=== PATIENT | female | born 1980 | race Two or more races ===

== ENCOUNTER 2017-12-09 12:25 | Emergency (ER) | payer OTHER ==
[2017-12-09 12:36] VITALS: BP 98/61; PULSE 61; TEMP 98; BMI 25.1
[2017-12-09] MEDS ORDERED: KETOROLAC TROMETHAMINE 60 MG/2 ML VIAL IM ONE (14:37)
[2017-12-09] MEDS ORDERED: KETOROLAC TROMETHAMINE 60 MG/2 ML VIAL ONE (14:40)
--- NOTE | 2017-12-09 14:49 | PDOC ---
History of Present Illness - General Chief Complaint: Back Pain Stated Complaint: FALL, PAIN IN LOWER BACK Time Seen by Provider: 12/09/17 12:59 - History of Present Illness Initial Comments: 37-year-old female with lower back pain after a slip on wet leaves this morning. She states she fell directly onto her buttocks. She complains of lower back pain. She denies radicular symptoms or loss of bowel bladder function. 12/09/17 14:43 Past History - Past Medical History Allergies/Adverse Reactions: Allergies Allergy/AdvReac Type Severity Reaction Status Date / Time No Known Allergies Allergy Verified 12/09/17 12:36 Home Medications: Ambulatory Orders Ranitidine [Zantac -] 150 mg PO DAILY #10 tablet 05/14/15 Cyclobenzaprine HCl [Flexeril 10 mg] 10 mg PO HS PRN #10 tablet 12/09/17 Ibuprofen [Motrin -] 600 mg PO TID #30 tablet 12/09/17 - Surgical History Cholecystectomy: Yes - Immunization History Immunization Up to Date: Yes - Suicide/Smoking/Psychosocial Hx Smoking History: Never smoked Have you smoked in the past 12 months: No Information on smoking cessation initiated: No Hx Alcohol Use: No Drug/Substance Use Hx: No Substance Use Type: None Review of Systems - Review of Systems Musculoskeletal: Yes: Back Pain All Other Systems: Reviewed and Negative *Physical Exam - Vital Signs Last Vital Signs Temp Pulse Resp BP Pulse Ox 98.0 F 61 16 98/61 99 12/09/17 12:33 12/09/17 12:33 12/09/17 12:33 12/09/17 12:33 12/09/17 12:33 - Physical Exam Comments: Lumbar spine skin color and temperature are normal there is mild to moderate left-sided paralumbar musculature spasm and tenderness. 5 out of 5 strength in bilateral lower extremities negative straight leg raise test thighs and calves are soft and nontender she has no gross sensorimotor deficits she is neurovascularly intact. 12/09/17 14:47 ED Treatment Course - ADDITIONAL ORDERS Additional order review: Laboratory Results 12/09/17 13:06 Urine HCG, Qual Negative - RADIOLOGY Radiology Studies Ordered: Category Date Time Status SPINE-LUMBAR SACRAL [RAD] Stat Radiology 12/09/17 14:22 Taken - Medications Given in the ED: ED Medications Discontinued Medications Generic Name Dose Route Start Last Admin Trade Name Freq PRN Reason Stop Dose Admin Ketorolac Tromethamine 60 mg 12/09/17 14:37 12/09/17 14:43 Toradol Injection - IM 12/09/17 14:38 60 mg ONCE ONE Administration *DC/Admit/Observation/Transfer Diagnosis at time of Disposition: Lumbar strain - Discharge Dispostion Disposition: HOME Condition at time of disposition: Improved Decision to Admit order: No - Referrals Referrals: Diana Vargas MD [Primary Care Provider] - Guilherme Spann MD [Staff Physician] - - Patient Instructions Printed Discharge Instructions: Low Back Pain, DI for Low Back Pain Additional Instructions: Return to the emergency room should symptoms worsen or go unresolved. Follow-up with spine surgery in 2-3 days for further evaluation and treatment options. Take the anti-inflammatory medication as directed 3 times a day with food that one tablet at a time. Discontinue the medication of bothers her stomach. The muscle relaxer will make you sleepy 20 tablet before bedtime. - Post Discharge Activity
== END 2017-12-09 14:55 | disposition home or self-care (01) ==
LOC: JERFT 12:25
DX: S39.012A Strain of muscle, fascia and tendon of lower back, initial encounter (principal); W01.0XXA Fall on same level from slipping, tripping and stumbling without subsequent striking against object, initial encounter; Y93.89 Activity, other specified; Y92.480 Sidewalk as the place of occurrence of the external cause; Y99.8 Other external cause status
CPT/HCPCS: 72100-TC-FY; 84703; 99281-25

== ENCOUNTER 2018-01-25 08:48 | Emergency (ER) | payer OTHER ==
[2018-01-25 08:53] VITALS: BP 103/62; PULSE 60; TEMP 98.4; BMI 24.7
[2018-01-25 09:29] LABS: BASO % 0.4 % (0-2.0); EOS % 1.4 % (0-4.5); HEMATOCRIT 38.3 % (32.4-45.2); HEMOGLOBIN 12.9 GM/dL (10.7-15.3); LYMPH % 27.4 % (8-40); MCH 31.5 pg (25.7-33.7); MCHC 33.8 g/dl (32.0-36.0); MEAN CELL VOLUME 93.1 fl (80-96); MEAN PLT VOLUME 6.9 fl (7.5-11.1); MONO % 7.6 % (3.8-10.2); NEUT % 63.2 % (42.8-82.8); PLATELET COUNT 285 K/MM3 (134-434); RBC 4.11 M/mm3 (3.60-5.2); WHITE BLOOD COUNT 6.7 K/mm3 (4.0-10.0)
[2018-01-25 09:31] LABS: URINE APPEARANCE CLEAR; URINE BILIRUBIN NEGATIVE (<2.0 mg/dL); URINE COLOR YELLOW; URINE GLUCOSE (UA) NEGATIVE (NEGATIVE); URINE KETONE NEGATIVE (NEGATIVE); URINE LEUK ESTERASE NEGATIVE (NEGATIVE); URINE NITRITE NEGATIVE (NEGATIVE); URINE PROTEIN NEGATIVE (NEGATIVE); URINE UROBILINOGEN NEGATIVE mg/dL (0.2-1.0)
--- NOTE | 2018-01-25 09:32 | PDOC ---
History of Present Illness - General Chief Complaint: Vaginal Bleeding Stated Complaint: 5 WKS / VAGINAL BLEEDING Time Seen by Provider: 01/25/18 08:58 History Source: Patient Exam Limitations: No Limitations - History of Present Illness Initial Comments: 01/25/18 10:14 37 y/o female approx 5 weeks presents to the ED with complaints of vaginal bleeding upon urination this morning. The patient also complains of mild abdominal cramping for ther past week and has her 1st ultrasound with her ob /rn support services tomorrow. The patient denies nausea, fever, back pain, or urinary complaints. Timing/Duration: reports: constant Quality: reports: mild, cramping Abdominal Pain Onset Location: reports: suprapubic (mid) Pain Radiation: reports: no radiation Activities at Onset: reports: none Aggravating Factors: improves with: None Alleviating Factors: improves with: None Past History - Travel Traveled outside of the country in the last 30 days: No - Past Medical History Allergies/Adverse Reactions: Allergies Allergy/AdvReac Type Severity Reaction Status Date / Time No Known Allergies Allergy Verified 01/25/18 08:53 Home Medications: Ambulatory Orders One Tablet 1 tab PO DAILY 01/25/18 COPD: No - Surgical History Cholecystectomy: Yes - Immunization History Immunization Up to Date: Yes - Suicide/Smoking/Psychosocial Hx Smoking History: Never smoked Have you smoked in the past 12 months: No Hx Alcohol Use: No Drug/Substance Use Hx: No Substance Use Type: None Patient Lives Alone: No Lives with/in: spouse/SO Review of Systems - Review of Systems Able to Perform ROS?: No Constitutional: No: Symptoms Reported HEENTM: No: Symptoms Reported Respiratory: No: Symptoms reported Cardiac (ROS): No: Symptoms Reported ABD/GI: Yes: Abdominal cramping : Yes: Discharge Musculoskeletal: No: Symptoms Reported Integumentary: No: Symptoms Reported Neurological: No: Symptoms reported Endocrine: No: Symptoms Reported *Physical Exam - Vital Signs Last Vital Signs Temp Pulse Resp BP Pulse Ox 98.4 F 60 18 103/62 99 01/25/18 08:50 01/25/18 08:50 01/25/18 08:50 01/25/18 08:50 01/25/18 08:50 - Physical Exam General Appearance: Yes: Nourished, Appropriately Dressed. No: Apparent Distress HEENT: negative: Pale Conjunctivae Neck: positive: Normal Thyroid Respiratory/Chest: positive: Lungs Clear, Normal Breath Sounds. negative: Respiratory Distress, Accessory Muscle Use Cardiovascular: positive: Regular Rhythm, Regular Rate. negative: Murmur Female Pelvic Exam: positive: cervical os closed, vaginal bleeding (bright red blod no clots). negative: adnexal tenderness Gastrointestinal/Abdominal: positive: Soft, Tenderness (mid suprapubic and right suprapubic) Musculoskeletal: negative: CVA Tenderness Extremity: positive: Normal Capillary Refill. negative: Pedal Edema Integumentary: positive: Normal Color, Warm, Moist Neurologic: positive: Motor Strength 5/5 (ambulatory) ED Treatment Course - LABORATORY CBC & Chemistry Diagram: 01/25/18 09:16 01/25/18 09:16 Medical Decision Making - Medical Decision Making 01/25/18 10:00 CC: vag bleeding , 5 weeks , no confirmed IUP, no hx of ectopic, SAB Exam: mid/right suprapubic tenderness with BRB in vault Plan: Labs, urine, u/s, offered tylenol but refused 01/25/18 10:33 Laboratory Tests 01/25/18 01/25/18 01/25/18 09:16 09:16 09:16 WBC 6.7 Hgb 12.9 Hct 38.3 Sodium 144 Potassium 3.5 Chloride 109 H Carbon Dioxide 25 Anion Gap 10 BUN 12 Creatinine 0.5 L Random Glucose 94 Calcium 8.3 L Total Bilirubin 0.5 AST 18 ALT 41 Alkaline Phosphatase 84 Total Protein 6.8 Albumin 3.8 Beta HCG, Quant 190.1 Urine Blood 3+ H Urine Nitrite Negative Ur Leukocyte Esterase Negative Urine WBC (Auto) 48 Urine RBC (Auto) 59 Blood Type Antibody Screen 01/25/18 09:16 WBC Hgb Hct Sodium Potassium Chloride Carbon Dioxide Anion Gap BUN Creatinine Random Glucose Calcium Total Bilirubin AST ALT Alkaline Phosphatase Total Protein Albumin Beta HCG, Quant Urine Blood Urine Nitrite Ur Leukocyte Esterase Urine WBC (Auto) Urine RBC (Auto) Blood Type Pending Antibody Screen Pending Laboratory Tests 01/25/18 01/25/18 09:16 10:40 Blood Type O POSITIVE O POSITIVE Antibody Screen Negative Ultrasound showed no iup or adnexal masses. Recommend repeat labs/ ultrasound for correlation. 01/25/18 12:15 *DC/Admit/Observation/Transfer Diagnosis at time of Disposition: Vaginal bleeding in - Discharge Dispostion Disposition: HOME Condition at time of disposition: Good - Referrals Referrals: Diana Vargas MD [Primary Care Provider] - - Patient Instructions Printed Discharge Instructions: DI for Vaginal Bleeding During Additional Instructions: Please follow up with your circus rider in 2 days or return here for repeat beta hcg and ultrasound. May take tylenol 650mg for cramping - Post Discharge Activity
[2018-01-25 09:35] LABS: EPI CELLS RARE /HPF (FEW); URINE MUCUS RARE
[2018-01-25 10:22] LABS: ALBUMIN 3.8 g/dl (3.4-5.0); ALK PHOS 84 U/L (45-117); ANION GAP 10 MMOL/L (8-16); BILIRUBIN,TOTAL 0.5 mg/dL (0.2-1); BLOOD UREA NITROGEN 12 mg/dL (7-18); CALCIUM 8.3 mg/dL (8.5-10.1); CHLORIDE 109 mmol/L (98-107); CO2 25 mmol/L (21-32); CREATININE 0.5 mg/dL (0.55-1.3); GLUCOSE,RANDOM 94 mg/dL (74-106); POTASSIUM 3.5 mmol/L (3.5-5.1); SGOT/AST 18 U/L (15-37); SGPT/ALT 41 U/L (13-61); SODIUM 144 mmol/L (136-145); TOT PROT 6.8 g/dl (6.4-8.2)
== END 2018-01-25 12:26 | disposition home or self-care (01) ==
LOC: JER 08:48
DX: O26.891 Other specified pregnancy related conditions, first trimester (principal); O20.8 Other hemorrhage in early pregnancy; Z3A.01 Less than 8 weeks gestation of pregnancy
CPT/HCPCS: 36415; 76817-TC; 80053; 81003; 81015; 84702; 85025; 86850; 86900; 86901; 87086; 99285-25

== ENCOUNTER 2018-07-20 15:45 | Emergency (ER) | payer OTHER ==
[2018-07-20 15:54] VITALS: BP 110/69; PULSE 65; TEMP 98.1; BMI 26.4
--- NOTE | 2018-07-20 15:56 | PDOC ---
Rapid Medical Evaluation Chief Complaint: Pain, Acute Time Seen by Provider: 07/20/18 15:55 Medical Evaluation: Allergies Allergy/AdvReac Type Severity Reaction Status Date / Time No Known Allergies Allergy Verified 07/20/18 15:51 Vital Signs Temp Pulse Resp BP Pulse Ox 98.1 F 65 18 110/69 98 07/20/18 15:51 07/20/18 15:51 07/20/18 15:51 07/20/18 15:51 07/20/18 15:51 07/20/18 15:56 I have performed a brief in-person evaluation of this patient. The patient presents with a chief complaint of:L foot pain x 1 week. No trauma. Denies pmhx Pertinent physical exam findings:deferred to ED provider I have ordered the following:nothing The patient will proceed to the ED for further evaluation. Discharge Disposition - Diagnosis Foot pain, left - Referrals - Patient Instructions - Post Discharge Activity
--- NOTE | 2018-07-20 16:41 | PDOC ---
History of Present Illness - General Chief Complaint: Pain, Acute Stated Complaint: LT. FOOT PAIN Time Seen by Provider: 07/20/18 15:55 History Source: Patient Exam Limitations: No Limitations - History of Present Illness Initial Comments: 07/20/18 16:36 Patient here with complaints of approximately one week of left foot pain. States onset was when she got out of bed last week and had tenderness to the bottom/sole of her foot. 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 Took Motrin with minimal resolved. 07/20/18 16:41 Occurred: reports: last week Severity: reports: mild, moderate Pain Location: reports: lower extremity (left foot, plantar aspect) Modifying Factors: improves with: cold therapy Associated Symptoms (Fall): denies symptoms Past History - Travel Traveled outside of the country in the last 30 days: No Close contact w/someone who was outside of country & ill: No - Past Medical History Allergies/Adverse Reactions: Allergies Allergy/AdvReac Type Severity Reaction Status Date / Time No Known Allergies Allergy Verified 07/20/18 15:51 Home Medications: Ambulatory Orders NK [No Known Home Medication] 07/20/18 COPD: No - Surgical History Abdominal Surgery: Yes Cholecystectomy: Yes - Reproductive History Cervical CA: No Dysfunctional Uterine Bleeding: No Ectopic : No Endometrial CA: No Polycystic Ovaries: No Therapeutic (s) & number: No Tubal Ligation: No - Immunization History Immunization Up to Date: Yes - Suicide/Smoking/Psychosocial Hx Smoking History: Never smoked Have you smoked in the past 12 months: No Hx Alcohol Use: No Drug/Substance Use Hx: No Substance Use Type: None Review of Systems - Review of Systems Able to Perform ROS?: Yes Is the patient limited Icelandic proficient: Yes Constitutional: Yes: Symptoms Reported, See HPI, Malaise HEENTM: No: Symptoms Reported All Other Systems: Reviewed and Negative *Physical Exam - Vital Signs Last Vital Signs Temp Pulse Resp BP Pulse Ox 98.1 F 65 18 110/69 98 07/20/18 15:51 07/20/18 15:51 07/20/18 15:51 07/20/18 15:51 07/20/18 15:51 - Physical Exam General Appearance: Yes: Nourished, Appropriately Dressed, Apparent Distress, Mild Distress HEENT: positive: TEDDY, Normal ENT Inspection, TMs Normal, Pharynx Normal Extremity: positive: Other (tenderness along the plantar fascia beginning insertion along the lateral aspect to the metatarsal insertions. Worsen with plantar dorsiflexion. Neurovascular intact to toes, no heel, malleoli or and redness. 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, Fully Oriented, Normal Response, Motor Strength 5/5 Progress Note - Progress Note Progress Note: Plantar fasciitis, will treat with anti-inflammatories and have follow-up *DC/Admit/Observation/Transfer Diagnosis at time of Disposition: Plantar fasciitis of left foot - Discharge Dispostion Disposition: HOME Condition at time of disposition: Stable Decision to Admit order: No - Referrals Referrals: Diana Vargas MD [Primary Care Provider] - - Patient Instructions Printed Discharge Instructions: DI for Plantar Fasciitis Additional Instructions: Rest, ice to area on and off for 15 minutes 4-6 times a day Avoid heavy lifting or exercise until pain and swelling is resolved or until further directed Keep area highly elevated to reduce swelling Wear supportive shoes/tennis shoes-sneakers Freeze water in a Coca-Cola bottle, and gently roll along bottom of foot to assist with icing the area Use splints/Alex wrap as directed Followup with orthopedist in one to 2 days if not improving, if significantly improved may wait one week for followup with orthopedist May consider alternative modalities including physical therapy, acupuncture or pressure, naturopathic rubs like Arnica creams May use ibuprofen 2-200 mg tablets every 6 hours as needed for pain - Post Discharge Activity Forms/Work/School Notes: Back to Work
== END 2018-07-20 16:40 | disposition home or self-care (01) ==
LOC: JERFT 15:45
DX: M72.2 Plantar fascial fibromatosis (principal)
CPT/HCPCS: 99281-25

== ENCOUNTER 2018-10-13 16:17 | Emergency (ER) | payer OTHER ==
[2018-10-13 16:26] VITALS: BP 106/66; PULSE 69; TEMP 98.3; BMI 25.4
--- NOTE | 2018-10-13 16:26 | PDOC ---
Rapid Medical Evaluation Time Seen by Provider: 10/13/18 16:22 Medical Evaluation: Allergies Allergy/AdvReac Type Severity Reaction Status Date / Time No Known Allergies Allergy Verified 07/20/18 15:51 10/13/18 16:22 I have performed a brief in-person evaluation of this patient. The patient presents with a chief complaint of: 8 weeks w/ vag bleed and dysuria. (s/p 1 spon AB), scheduled for initial US in over a week Pertinent physical exam findings:Stable and in NAD I have ordered the following:T&S/beta/UA/US The patient will proceed to the ED for further evaluation Discharge Disposition - Diagnosis Vaginal bleeding in - Referrals - Patient Instructions - Post Discharge Activity
--- NOTE | 2018-10-13 17:11 | PDOC ---
History of Present Illness - General History Source: Patient Exam Limitations: No Limitations <Ivelisse Fuentes - Last Filed: 10/13/18 19:09> <Susan Harrington - Last Filed: 10/16/18 10:06> - General Chief Complaint: Vaginal Bleeding Stated Complaint: 8 WKS /VAGINAL BLEEDING Time Seen by Provider: 10/13/18 16:22 Past History - Travel Traveled outside of the country in the last 30 days: No Close contact w/someone who was outside of country & ill: No - Past Medical History COPD: No - Surgical History Abdominal Surgery: Yes Cholecystectomy: Yes - Reproductive History Cervical CA: No Dysfunctional Uterine Bleeding: No Ectopic : No Endometrial CA: No Polycystic Ovaries: No Therapeutic (s) & number: No Tubal Ligation: No - Immunization History Immunization Up to Date: Yes - Suicide/Smoking/Psychosocial Hx Smoking History: Never smoked Have you smoked in the past 12 months: No Information on smoking cessation initiated: No Hx Alcohol Use: No Drug/Substance Use Hx: No Substance Use Type: None <Ivelisse Fuentes - Last Filed: 10/13/18 19:09> <Susan Harrington - Last Filed: 10/16/18 10:06> - Past Medical History Allergies/Adverse Reactions: Allergies Allergy/AdvReac Type Severity Reaction Status Date / Time No Known Allergies Allergy Verified 10/15/18 15:06 Home Medications: Ambulatory Orders Cephalexin Monohydrate [Keflex -] 500 mg PO BID #14 capsule 10/13/18 Review of Systems - Review of Systems Able to Perform ROS?: Yes Comments:: 10/13/18 18:46 CONSTITUTIONAL: Absent: fever, chills, diaphoresis, generalized weakness, malaise, loss of appetite HEENT: Absent: rhinorrhea, nasal congestion, throat pain, throat swelling, difficulty swallowing, mouth swelling, ear pain, eye pain, visual Changes CARDIOVASCULAR: Absent: chest pain, loss of consciousness, palpitations, irregular heart rate, peripheral edema RESPIRATORY: Absent: cough, shortness of breath, dyspnea with exertion, orthopnea, wheezing, stridor, hemoptysis GASTROINTESTINAL: Absent: abdominal pain, abdominal distension, nausea, vomiting, diarrhea, constipation, melena, hematochezia GENITOURINARY: Present: frequency, dysuria, vaginal bleeding Absent: urgency, hesitancy, hematuria, flank pain, genital pain MUSCULOSKELETAL: Absent: myalgia, arthralgia, joint swelling SKIN: Absent: rash, itching, pallor HEMATOLOGIC/IMMUNOLOGIC: Absent: easy bleeding, easy bruising, lymphadenopathy, frequent infections ENDOCRINE: Absent: unexplained weight gain, unexplained weight loss, heat intolerance, cold intolerance NEUROLOGIC: Absent: headache, focal weakness or paresthesias, dizziness, unsteady gait, seizure, mental status changes, bladder or bowel incontinence PSYCHIATRIC: Absent: anxiety, depression, suicidal or homicidal ideation, hallucinations. Is the patient limited Mohawk proficient: No <AlfredoIvelisse - Last Filed: 10/13/18 19:09> *Physical Exam - Vital Signs Last Vital Signs Temp Pulse Resp BP Pulse Ox 98.3 F 69 17 106/66 98 10/13/18 16:24 10/13/18 16:24 10/13/18 16:24 10/13/18 16:24 10/13/18 16:24 - Physical Exam Comments: 10/13/18 18:48 GENERAL: Well developed, well nourished. Awake and alert. No acute distress. HEENT: Normocephalic, atraumatic. PERRLA, EOMI. No conjunctival pallor. Sclera are non- icteric. Moist mucous membranes. Oropharynx is clear. NECK: Supple. Full ROM. No JVD. Carotid pulses 2+ and symmetric, without bruits. No thyromegaly. No lymphadenopathy. CARDIOVASCULAR: Regular rate and rhythm. No murmurs, rubs, or gallops. Distal pulses are 2+ and symmetric. PULMONARY: No evidence of respiratory distress. Lungs clear to auscultation bilaterally. No wheezing, rales or rhonchi. ABDOMINAL: Suprapubic discomfort. Soft. Non-tender. Non-distended. No rebound or guarding. No organomegaly. Normoactive bowel sounds. MUSCULOSKELETAL Normal range of motion at all joints. No bony deformities or tenderness. No CVA tenderness. EXTREMITIES: No cyanosis. No clubbing. No edema. No calf tenderness. SKIN: Warm and dry. Normal capillary refill. No rashes. No jaundice. NEUROLOGICAL: Alert, awake, appropriate. Cranial nerves 2-12 intact. No deficits to light touch and temperature in face, upper extremities and lower extremities. No motor deficits in the in face, upper extremities and lower extremities. Normoreflexic in the upper and lower extremities. Normal speech. Toes are down- going bilaterally. Gait is normal without ataxia. PSYCHIATRIC: Cooperative. Good eye contact. Appropriate mood and affect. <Ivelisse Fuentes - Last Filed: 10/13/18 19:09> - Vital Signs Last Vital Signs Temp Pulse Resp BP Pulse Ox 98.3 F 69 17 106/66 98 10/13/18 16:24 10/13/18 16:24 10/13/18 16:24 10/13/18 16:24 10/13/18 16:24 <Susan Harrington - Last Filed: 10/16/18 10:06> ED Treatment Course - ADDITIONAL ORDERS Additional order review: 10/13/18 17:15 Urine Culture - Preliminary Urine - Urine Clean Catch Pending Organism <Susan Harrington - Last Filed: 10/16/18 10:06> Medical Decision Making - Medical Decision Making 10/13/18 18:49 The patient is a 38-year-old female, A1 currently 8 weeks by dates who presents to the ER today for reported vaginal bleeding. She states that when she wakes she notices some darkish red blood on the toilet paper. Denies clots. She states that when she peas it feels itchy and that she is going more frequently than usual. She started bleeding this morning. Denies fevers, chills, nausea, vomiting, abdominal pain, constipation, diarrhea. A/P: Vaginal bleed Type and screen, urine and transvaginal ultrasound ordered at this time Urine appears to show UTI with 1+ leukocytes, 6 red blood cells in the setting of we'll treat Patient is old positive blood type Transvaginal ultrasound shows a gestational sac at 5 weeks 1 day. No heartbeat at this time however still early Beta 1300 Suspect that this is bleeding from a UTI. We'll treat with Keflex DC home with instructions to f/u in two days for repeat beta and us I discussed the physical exam findings, ancillary test results and final diagnoses with the patient. I answered all of the patient's questions. The patient was satisfied with the care received and felt comfortable with the discharge plan and treatment plan. The Patient agrees to follow up with the primary care physician/specialist within 24-72 hours. Return precautions were given. <Ivelisse Fuentes - Last Filed: 10/13/18 19:09> *DC/Admit/Observation/Transfer - Discharge Dispostion Decision to Admit order: No <Ivelisse Fuentes - Last Filed: 10/13/18 19:09> - Attestations Physician Attestion: I reviewed the case with the mid-level practitioner and agree with the mid- level practitioner's assessment, diagnosis and disposition. <LenSusan - Last Filed: 10/16/18 10:06> Diagnosis at time of Disposition: Vaginal bleeding in UTI (urinary tract infection) Qualifiers: Urinary tract infection type: acute cystitis Hematuria presence: with hematuria Qualified Code(s): N30.01 - Acute cystitis with hematuria - Discharge Dispostion Disposition: HOME Condition at time of disposition: Stable - Prescriptions Prescriptions: Cephalexin Monohydrate [Keflex -] 500 mg PO BID #14 capsule - Referrals Referrals: Domenic Johnson MD [Staff Physician] - - Patient Instructions Printed Discharge Instructions: DI for Urinary Tract Infection (UTI), DI for Vaginal Bleeding During Additional Instructions: You have a urinary tract infection. This caused by bacteria. Please drink plenty of fluids. Take your antibiotics as prescribed. Finish the entire dose even if you feel better. You may take Tylenol as needed for pain. follow the dosing instruction on the bottle Return in 2 days to the ER for repeat blood work and ultrasound Return to the emergency department if you have fevers, chills, nausea, vomiting , back pain, or have any changes in your symptoms. Tiene kalani infeccin del tracto urinario. [place] es causado por las bacterias. Por favor, ryley muchos lquidos. E. Lopez hortencia antibiticos segn lo prescrito. Termine la dosis completa incluso si se siente mejor. Puede jose Tylenol segn sea necesario para el dolor. Seguir las instrucciones de dosificacin en la botella. Regrese en 2 irizarry a la jef de emergencias para repetir el anlisis de angy y la ecografa. Regrese al departamento de emergencias si tiene fiebre, escalofros, nuseas, vmitos, dolor de espalda o si tiene algn cambio en hortencia sntomas. Print Language: [place] - Post Discharge Activity Forms/Work/School Notes: Back to Work
[2018-10-13 17:55] LABS: EPI CELLS 5.5 /HPF (0-5/HPF); HYALINE CASTS 8 /lpf (0-8); PH,URINE 8.5 (5.0-8.0); URINE APPEARANCE CLEAR; URINE BACTERIA 253.2 /hpf (NEGATIVE); URINE BILIRUBIN NEGATIVE (NEGATIVE); URINE COLOR YELLOW; URINE GLUCOSE (UA) NEGATIVE (NEGATIVE); URINE KETONE NEGATIVE (NEGATIVE); URINE LEUK ESTERASE 1+ (NEGATIVE); URINE NITRITE NEGATIVE (NEGATIVE); URINE PROTEIN 1+ (NEGATIVE); URINE RBC 26 /hpf (0-4); URINE UROBILINOGEN 0.2 mg/dL (0.2-1.0); URINE WBC 6 /hpf (0-5)
== END 2018-10-13 19:48 | disposition home or self-care (01) ==
LOC: JER 16:17
DX: O26.891 Other specified pregnancy related conditions, first trimester (principal); O23.11 Infections of bladder in pregnancy, first trimester; N30.01 Acute cystitis with hematuria; Z3A.08 8 weeks gestation of pregnancy
CPT/HCPCS: 36415; 76817-TC; 81003; 84702; 86850; 86900; 86901; 87077; 87086; 99282-25

== ENCOUNTER 2018-10-15 14:49 | Emergency (ER) | payer OTHER ==
[2018-10-15 15:06] VITALS: BMI 25.4
--- NOTE | 2018-10-15 15:07 | PDOC ---
Rapid Medical Evaluation Chief Complaint: Revisit, Lab Variance Time Seen by Provider: 10/15/18 15:03 Medical Evaluation: Allergies Allergy/AdvReac Type Severity Reaction Status Date / Time No Known Allergies Allergy Verified 10/13/18 16:23 10/15/18 15:04 I have performed a brief in-person evaluation of this patient. The patient presents with a chief complaint of: told to return today from Friday to have repeat labs and US - was well Pertinent physical exam findings: I have ordered the following: The patient will proceed to the ED for further evaluation.
[2018-10-15 16:00] LABS: EPI CELLS 0.5 /HPF (0-5/HPF); HYALINE CASTS 0 /lpf (0-8); PH,URINE 6.5 (5.0-8.0); URINE APPEARANCE CLEAR; URINE BACTERIA 11.7 /hpf (NEGATIVE); URINE BILIRUBIN NEGATIVE (NEGATIVE); URINE COLOR YELLOW; URINE GLUCOSE (UA) NEGATIVE (NEGATIVE); URINE KETONE NEGATIVE (NEGATIVE); URINE LEUK ESTERASE NEGATIVE (NEGATIVE); URINE NITRITE NEGATIVE (NEGATIVE); URINE PROTEIN NEGATIVE (NEGATIVE); URINE RBC 20 /hpf (0-4); URINE UROBILINOGEN 0.2 mg/dL (0.2-1.0); URINE WBC 0 /hpf (0-5)
--- NOTE | 2018-10-15 16:27 | PDOC ---
*Physical Exam - Vital Signs Last Vital Signs Temp Pulse Resp BP Pulse Ox 98.5 F 61 18 108/66 99 10/15/18 15:04 10/15/18 15:04 10/15/18 15:04 10/15/18 15:04 10/15/18 15:04 ED Treatment Course - ADDITIONAL ORDERS Additional order review: Laboratory Results 10/15/18 15:38 Urine Color Yellow Urine Appearance Clear Urine pH 6.5 D Ur Specific [place] 1.014 Urine Protein Negative Urine Glucose (UA) Negative Urine Ketones Negative Urine Blood 2+ H Urine Nitrite Negative Urine Bilirubin Negative Urine Urobilinogen 0.2 Ur Leukocyte Esterase Negative Urine WBC (Auto) 0 Urine RBC (Auto) 20 Urine Casts (Auto) 0 U Epithel Cells (Auto) 0.5 Urine Bacteria (Auto) 11.7 Medical Decision Making - Medical Decision Making 10/15/18 16:26 38 yo A1 F returns to ED with vaginal bleeding for repeat beta hCG and US. Vaginal Bleeding x 2 days (not saturating any pads) Pt seen by Midlevel Provider under my direct supervision Ancillary studies reviewed I agree with plan as outlined by Midlevel Provider 10/15/18 17:29 Laboratory Tests 10/15/18 10/15/18 15:38 15:38 Beta HCG, Quant 1358.9 Urine Blood 2+ H Urine Nitrite Negative Ur Leukocyte Esterase Negative 10/15/18 17:29 Laboratory Tests 10/13/18 17:15 Blood Type O POSITIVE 10/15/18 17:30 BHCG has not doubled US pending Gestational sac 5 weeks 2 days clinical impression: threatened AB, repeat presentation *DC/Admit/Observation/Transfer Diagnosis at time of Disposition: Threatened miscarriage - Discharge Dispostion Disposition: HOME Condition at time of disposition: Stable - Referrals Referrals: Nishant Shukla MD [Staff Physician] - Yandy Nieves DO [Staff Physician] - Yina Duncan MD [Staff Physician] - - Patient Instructions Printed Discharge Instructions: DI for Miscarriage - Post Discharge Activity Forms/Work/School Notes: Back to Work
--- NOTE | 2018-10-15 16:51 | PDOC ---
History of Present Illness - General Chief Complaint: Vaginal Bleeding Stated Complaint: REVISIT Time Seen by Provider: 10/15/18 15:03 - History of Present Illness Initial Comments: 10/15/18 17:01 CHIEF COMPLAINT: vaginal bleeding HISTORY OF PRESENT ILLNESS: 38 yo A1 F returns to ED with vaginal bleeding for repeat beta hCG and US. Patient states she is and began bleeding 2 days ago and came to the ER that day for evaluation. She reports that she is still bleeding but only when she wipes after urination. She says she uses a pad but there's never any blood on it. LMP 5. Pt has not established care with OB yet. No recent travel or sick contacts. PAST MEDICAL HISTORY: Denies past medical history FAMILY HISTORY: Denies SOCIAL HISTORY:Denies tobacco, alcohol, illicit drug use. SURGICAL HISTORY: Denies ALLERGIES: No known drug allergies REVIEW OF SYSTEMS General/Constitutional: Denies fever or chills. Denies weakness, weight change. HEENT: Denies change in vision. Denies ear pain or discharge. Denies sore throat. Cardiovascular: Denies chest pain or shortness of breath. Respiratory: Denies cough, wheezing, or hemoptysis. Gastrointestinal: Denies nausea, vomiting, diarrhea or constipation. Denies rectal bleeding. Genitourinary: Scant vaginal bleeding x 2 days. Denies dysuria, frequency, or change in urination. Musculoskeletal: Denies joint or muscle swelling or pain. Denies neck or back pain. Skin and breasts: Denies rash or easy bruising. Neurologic: Denies headache, vertigo, loss of consciousness, or loss of sensation. PHYSICAL EXAM General Appearance: Well-appearing, appropriately dressed. No apparent distress , no intoxication. HEENT: EOMI, PERRLA, normal ENT inspection, normal voice, TMs normal, pharynx normal. No conjunctival pallor. No photophobia, scleral icterus. Neck: Supple. Trachea midline. No tenderness, rigidity, carotid bruit, stridor , lymphadenopathy, or thyromegaly. Respiratory/Chest: Lungs CTAB. No shortness of breath, chest tenderness, respiratory distress, accessory muscle use. No crackles, rales, rhonchi, stridor , wheezing, dullness Cardiovascular: RRR. S1, S2. No JVD, murmur, bradycardia, tachycardia. Vascular Pulses: Dorsalis-Pedis (R): 2+, Dorsalis-Pedis (L): 2+ Gastrointestinal/Abdominal: Normal bowel sounds. Abdomen soft, non-distended. No tenderness or rebound tenderness. No organomegaly, pulsatile mass, guarding , hernia, hepatomegaly, splenomegaly. Lymphatic: No adenopathy, tenderness. Musculoskeletal/Extremities: Normal inspection. FROM of all extremities, normal capillary refill. Pelvis Stable. No CVA tenderness. No tenderness to extremities, pedal edema, swelling, erythema or deformity. Integumentary: Appropriate color, dry, warm. No cyanosis, erythema, jaundice or rash Neurologic: cork tipper II-XII intact. Fully oriented, alert. Appropriate mood/affect. Motor strength 5/5. No appreciable EOM palsy, facial droop or sensory deficit. Past History - Past Medical History Allergies/Adverse Reactions: Allergies Allergy/AdvReac Type Severity Reaction Status Date / Time No Known Allergies Allergy Verified 10/15/18 15:06 Home Medications: Ambulatory Orders Cephalexin Monohydrate [Keflex -] 500 mg PO BID #14 capsule 10/13/18 COPD: No - Surgical History Abdominal Surgery: Yes Cholecystectomy: Yes - Reproductive History (#): 5 Para: 3 Cervical CA: No Dysfunctional Uterine Bleeding: No Ectopic : No Endometrial CA: No Polycystic Ovaries: No Therapeutic (s) & number: No Tubal Ligation: No Spontaneous : 1 - Immunization History Immunization Up to Date: Yes - Suicide/Smoking/Psychosocial Hx Smoking History: Never smoked Have you smoked in the past 12 months: No Hx Alcohol Use: No Drug/Substance Use Hx: No Substance Use Type: None *Physical Exam - Vital Signs Last Vital Signs Temp Pulse Resp BP Pulse Ox 98.5 F 61 18 108/66 99 10/15/18 15:04 10/15/18 15:04 10/15/18 15:04 10/15/18 15:04 10/15/18 15:04 ED Treatment Course - ADDITIONAL ORDERS Additional order review: Laboratory Results 10/15/18 15:38 Urine Color Yellow Urine Appearance Clear Urine pH 6.5 D Ur Specific [place] 1.014 Urine Protein Negative Urine Glucose (UA) Negative Urine Ketones Negative Urine Blood 2+ H Urine Nitrite Negative Urine Bilirubin Negative Urine Urobilinogen 0.2 Ur Leukocyte Esterase Negative Urine WBC (Auto) 0 Urine RBC (Auto) 20 Urine Casts (Auto) 0 U Epithel Cells (Auto) 0.5 Urine Bacteria (Auto) 11.7 Medical Decision Making - Medical Decision Making 10/15/18 17:09 38 yo A1 F returns to ED with vaginal bleeding for repeat beta hCG and US. -beta hcg -US ultrasound shows interval development of previous yolk sac seen two days prior. awaiting hcg. 10/15/18 18:19 beta trending down from 2 days ago, likely miscarrying. Discussed findings with patient and that she will likely have increased vaginal bleeding until the miscarriage has completed. Advised patient to f/u with OB in one week for continued monitoring/evaluation. Advised patient of signs and symptoms for return to ER; patient verbalized understanding and agrees to plan. *DC/Admit/Observation/Transfer Diagnosis at time of Disposition: Threatened miscarriage - Discharge Dispostion Disposition: HOME Condition at time of disposition: Stable Decision to Admit order: No - Referrals Referrals: Yina Duncan MD [Staff Physician] - Nishant Shukla MD [Staff Physician] - Yandy Nieves DO [Staff Physician] - - Patient Instructions Printed Discharge Instructions: DI for Miscarriage - Post Discharge Activity Forms/Work/School Notes: Back to Work
[2018-10-15 17:02] VITALS: BP 105/68; PULSE 64; TEMP 98.2
== END 2018-10-15 18:30 | disposition home or self-care (01) ==
LOC: JER 14:49
DX: O26.891 Other specified pregnancy related conditions, first trimester (principal); O20.0 Threatened abortion; Z3A.01 Less than 8 weeks gestation of pregnancy
CPT/HCPCS: 36415; 76817-TC; 81003; 84702; 99281-25